=== PATIENT | male | born 1940 | race Asian ===

== ENCOUNTER 2024-09-14 15:00 | Inpatient (IN) | payer MEDICARE, MEDICAID ==
[~2024-09-14] VITALS: Ht 167.6 cm; Wt 48.2 kg
[2024-09-14] MEDS ORDERED: APIX2.5T PO (15:25)
[2024-09-14] MEDS ORDERED: AMOX1TAB15 PO (15:25)
[2024-09-14] MEDS ORDERED: METO50 PO (15:25)
[2024-09-14] MEDS ORDERED: ATOR-2 PO (15:25)
[2024-09-14] MEDS ORDERED: ACET-66 PO ×2 (15:25)
[2024-09-14] MEDS ORDERED: FURO20TA4 PO (15:25)
[2024-09-14] MEDS ORDERED: TAMS0.4C94 PO (15:25)
[2024-09-14 15:34] LABS: PLATELET COUNT (AUTO) 267 K/uL (150-450); RED BLOOD CELL COUNT(AUTO) 4.57 MIL/uL (4.50-5.90); RED CELL DISTRIBUTION WIDTH 15.7 % (11.5-14.5); WHITE BLOOD COUNT (AUTO) 4.8 K/uL (4.5-11.0)
[2024-09-14 15:48] LABS: CALCIUM, TOTAL 8.3 mg/dL (8.8-10.5); CREATININE 2.73 mg/dL (0.60-1.30); GLOMERULAR FILTR. RATE CALC 23.0 mL/min (>60); GLUCOSE,RANDOM 150.0 mg/dL (70-110); SODIUM SERUM 143.0 mmol/L (136-145); UREA NITROGEN, BLOOD 55.0 mg/dL (7-18)
[2024-09-14 16:02] LABS: COVID AG,FIA SOURCE NASAL SWAB
[2024-09-14 16:23] LABS: SARS-COV2 (COVID) ANTIGEN,FIA Negative (Negative)
[2024-09-14] MEDS ORDERED: ACET-2247 PO ×2 (19:17)
[2024-09-14] MEDS ORDERED: AMOX500C2 PO (19:17)
[2024-09-15 07:41] LABS: PLATELET COUNT (AUTO) 261 K/uL (150-450); RED BLOOD CELL COUNT(AUTO) 4.35 MIL/uL (4.50-5.90); RED CELL DISTRIBUTION WIDTH 14.8 % (11.5-14.5); WHITE BLOOD COUNT (AUTO) 5.0 K/uL (4.5-11.0)
[2024-09-15 08:04] LABS: ASPARTATE AMINOTRANSFERASE 52.0 U/L (15-37); SODIUM SERUM 145.0 mmol/L (136-145); TOTAL PROTEIN, SERUM 6.5 g/dL (6.4-8.2)
[2024-09-15 08:15] LABS: CREATININE 2.59 mg/dL (0.60-1.30); GLUCOSE,RANDOM 98.0 mg/dL (70-110); UREA NITROGEN, BLOOD 53.0 mg/dL (7-18)
[2024-09-15 08:16] LABS: CALCIUM, TOTAL 8.6 mg/dL (8.8-10.5); GLOMERULAR FILTR. RATE CALC 24.0 mL/min (>60)
[2024-09-15 08:24] LABS: CHOL/HDL RATIO 3.5 (4.2-7.3); LDL CHOL (CALC.) 121.0 mg/dL (0-130)
[2024-09-15] MEDS: APIXABAN 2.5 MG TABLET PO SCH (09:41)
[2024-09-15] MEDS: METOPROLOL TARTRATE 50 MG TABLET PO SCH (09:42)
[2024-09-15] MEDS: FUROSEMIDE 20 MG TABLET PO SCH (09:42)
[2024-09-15] MEDS: TAMSULOSIN HCL 0.4 MG CAPSULE PO SCH (20:12)
[2024-09-15] MEDS: ATORVASTATIN CALCIUM 40 MG TABLET PO SCH (20:12)
[2024-09-15] MEDS: ZOLPIDEM TARTRATE 10 MG TABLET PO PRN (21:58)
[2024-09-16 03:16] VITALS: BP 121/84; PULSE 98; RESP 18; TEMP 98.3; O2SAT 99
[2024-09-16] MEDS ORDERED: ACETAMINOPHEN 325 MG TABLET PO PRN ×2 (05:45→06:15)
[2024-09-16] MEDS ORDERED: DOCUSATE SODIUM 100 MG CAPSULE PO PRN (06:15)
[2024-09-16] MEDS ORDERED: NICOTINE 14 MG/24 HOUR PATCH TD PRN (06:15)
[2024-09-16] MEDS ORDERED: ONDANSETRON 4 MG TABLET PO PRN (06:15)
[2024-09-16] MEDS ORDERED: MAG HYDROX/ALUMINUM HYD/SIMETH ES 30 ML SUSPENSION UDCUP PO PRN (06:15)
[2024-09-16] MEDS ORDERED: ALBUTEROL SULFATE HFA 90 MCG/PUFF 8 GM INHALER IH PRN (06:15)
[2024-09-16] MEDS ORDERED: MAGNESIUM HYDROXIDE SUSPENSION 30 ML UDCUP PO PRN (06:15)
[2024-09-16] MEDS ORDERED: GuaiFENesin/D-METHORPHAN [SUGAR-FREE] 200-20MG/10 ML SYRUP UDCUP PO PRN (06:15)
[2024-09-16] MEDS ORDERED: LOPERAMIDE HCL 2 MG CAPSULE PO PRN (06:15)
[2024-09-16] MEDS ORDERED: PETROLATUM,WHITE 28 GM JELLY TP PRN (06:15)
[2024-09-16] MEDS: POTASSIUM CHLORIDE 20 MEQ ER TABLET PO ONE (09:10)
[2024-09-16] MEDS: AMOXICILLIN TRIHYDRATE 500 MG CAPSULE PO SCH (10:14)
[2024-09-16 20:10] VITALS: BP 124/77; PULSE 85; RESP 19; TEMP 98.1; O2SAT 98
[2024-09-17 08:22] LABS: CALCIUM, TOTAL 9.0 mg/dL (8.8-10.5); CREATININE 2.4 mg/dL (0.60-1.30); GLOMERULAR FILTR. RATE CALC 26.0 mL/min (>60); GLUCOSE,RANDOM 101.0 mg/dL (70-110); SODIUM SERUM 145.0 mmol/L (136-145); UREA NITROGEN, BLOOD 44.0 mg/dL (7-18)
[2024-09-17 08:35] VITALS: BP 112/73; PULSE 73; RESP 17; TEMP 98; O2SAT 95
[2024-09-17 08:39] LABS: CHOL/HDL RATIO 3.3 (4.2-7.3); LDL CHOL (CALC.) 127.0 mg/dL (0-130)
[2024-09-17] MEDS ORDERED: METO50 PO (16:13)
[2024-09-17] MEDS ORDERED: TAMS0.4C94 PO (16:13)
[2024-09-17] MEDS ORDERED: FURO20TA4 PO (16:13)
[2024-09-17] MEDS ORDERED: ATOR40TA71 PO (16:13)
[2024-09-17] MEDS ORDERED: APIX2.5T PO (16:13)
[2024-09-17 16:50] VITALS: BP 131/90
== END 2024-09-17 16:08 | disposition home or self-care (01) | DRG 885 ==
LOC: EMS 15:00 → 3EI 09-16 01:30 → EMS 09-16 01:30 → 3EI 09-16 01:57
PROVIDERS: ADMIT Psychiatry & Neurology Child & Adolescent Psychiatry; ATTEND Psychiatry & Neurology Child & Adolescent Psychiatry
PROC: GZ58ZZZ Individual Psychotherapy, Cognitive-Behavioral (ICD-10-PCS; principal; 2024-09-16)
PROC: GZ56ZZZ Individual Psychotherapy, Supportive (ICD-10-PCS; 2024-09-16)
DX: F29 Unspecified psychosis not due to a substance or known physiological condition (principal); N18.4 Chronic kidney disease, stage 4 (severe); I13.0 Hypertensive heart and chronic kidney disease with heart failure and stage 1 through stage 4 chronic kidney disease, or unspecified chronic kidney disease; I50.9 Heart failure, unspecified; Z20.822 Contact with and (suspected) exposure to COVID-19; F03.90 Unspecified dementia, unspecified severity, without behavioral disturbance, psychotic disturbance, mood disturbance, and anxiety; N40.0 Benign prostatic hyperplasia without lower urinary tract symptoms; I48.91 Unspecified atrial fibrillation; F20.9 Schizophrenia, unspecified; Z86.73 Personal history of transient ischemic attack (TIA), and cerebral infarction without residual deficits; I25.2 Old myocardial infarction
CPT/HCPCS: 80048; 80053; 80061; 83036; 84436; 84439; 84443; 85025; 87081; 99285; G0480